=== PATIENT | female | born 1950 | race Caucasian/White ===

== ENCOUNTER 2020-06-25 13:46 | Emergency (ER) | payer MEDICARE ==
[2020-06-25] MEDS ORDERED: Bacitracin 1 PK ONE (14:05)
== END 2020-06-25 14:10 | disposition home or self-care (01) ==
LOC: BURERS 13:46
DX: S61.511A Laceration without foreign body of right wrist, initial encounter (principal); W26.0XXA Contact with knife, initial encounter
CPT/HCPCS: 12001